=== PATIENT | female | born 1995 | race Two or more races ===

== ENCOUNTER 2023-04-16 17:31 | Emergency (ER) | payer OTHER ==
[2023-04-16 17:43] VITALS: BP 161/84; PULSE 82; RESP 18; TEMP 97.7; BMI 51.7
[2023-04-16] MEDS ORDERED: ACETAMINOPHEN 500 MG TABLET (FP) PO ONE (18:21)
== END 2023-04-16 18:35 | disposition home or self-care (01) ==
LOC: JERFT 17:31
DX: S09.90XA Unspecified injury of head, initial encounter (principal); R51.9 Headache, unspecified; R42 Dizziness and giddiness; R41.9 Unspecified symptoms and signs involving cognitive functions and awareness; W22.03XA Walked into furniture, initial encounter; W19.XXXA Unspecified fall, initial encounter
CPT/HCPCS: 99282-25

== ENCOUNTER 2023-07-03 01:11 | Emergency (ER) | payer OTHER ==
[2023-07-03 01:19] VITALS: BP 144/95; PULSE 98; RESP 20; TEMP 98.5; BMI 52.4
[2023-07-03] MEDS ORDERED: FLUORESCEIN NA 1 EA STRIP ONE (01:46)
[2023-07-03] MEDS ORDERED: TETRACAINE 0.5% OPHTH SOLN 2 ML BOTTLE ONE (01:46)
[2023-07-03] MEDS ORDERED: ERYTHROMYCIN 0.5% OPHTHALMIC OINTMENT 3.5 GM TUBE ONE (02:11)
[2023-07-03] MEDS: ERYTHROMYCIN 0.5% OPHTHALMIC OINTMENT 3.5 GM TUBE OS ONE (02:15)
[2023-07-03] MEDS: TETRACAINE 0.5% HCL 0.6ML DROPPER.BOTTLE OD ONE (02:58)
[2023-07-03] MEDS: FLUORESCEIN NA 1 EA STRIP OD ONE (02:59)
== END 2023-07-03 03:02 | disposition home or self-care (01) ==
LOC: JER 01:11
DX: S05.02XA Injury of conjunctiva and corneal abrasion without foreign body, left eye, initial encounter (principal); R00.0 Tachycardia, unspecified; W50.0XXA Accidental hit or strike by another person, initial encounter
CPT/HCPCS: 99283-25